=== PATIENT | female | born 1965 | race Caucasian/White ===

== ENCOUNTER → 2017-07-06 | Outpatient (CLI) | payer OTHER ==
--- NOTE | 2017-07-09 07:52 | MM ---
Reason for exam: additional evaluation requested from abnormal screening. Last mammogram was performed less than 1 month ago. History: Patient had first child at age 35. Family history of breast cancer in paternal aunt. Taking estrogen beginning at age 52. Taking progesterone beginning at age 52. Took other hormone beginning at age 29. Physical Findings: Nurse did not find any significant physical abnormalities on exam. MG 3D Work Up W/Cad RT ML and spot compression CC view(s) were taken of the right breast. Prior study comparison: June 25, 2017, bilateral MG 3d screening mammo w/cad. September 20, 2015, bilateral MG screening mammo w CAD. The breast tissue is extremely dense which could obscure a lesion on mammography. There is no discrete abnormality. No significant new findings when compared with previous films. These results were verbally communicated with the patient and result sheet given to the patient on 07/06/17. ASSESSMENT: Benign, BI-RAD 2 RECOMMENDATION: Return to routine screening mammogram schedule for both breasts.
== END | disposition home or self-care (01) ==
LOC: RADMAMWWP 15:00
PROVIDERS: ATTEND Obstetrics & Gynecology
DX: R92.8 Other abnormal and inconclusive findings on diagnostic imaging of breast (principal)
CPT/HCPCS: G0206; G0279

== ENCOUNTER → 2018-09-05 | Outpatient (CLI) | payer BC ==
--- NOTE | 2018-09-08 14:03 | MM ---
Reason for exam: screening (asymptomatic). Last mammogram was performed 1 year and 2 months ago. History: Patient had first child at age 35. Family history of breast cancer in paternal aunt. Taking estrogen beginning at age 52. Taking progesterone beginning at age 52. Took other hormone beginning at age 29. MG 3D Screening Mammo W/Cad Bilateral CC and MLO view(s) were taken. Prior study comparison: July 06, 2017, right breast MG 3d work up w/cad RT. June 25, 2017, bilateral MG 3d screening mammo w/cad. The breast tissue is extremely dense which could obscure a lesion on mammography. No suspicious abnormality. No significant changes when compared with prior studies. ASSESSMENT: Negative, BI-RAD 1 RECOMMENDATION: Routine screening mammogram of both breasts in 1 year.
== END | disposition home or self-care (01) ==
LOC: RADMAMWWP 07:04
PROVIDERS: ATTEND Obstetrics & Gynecology
DX: Z12.31 Encounter for screening mammogram for malignant neoplasm of breast (principal)
CPT/HCPCS: 77063; 77067

== ENCOUNTER → 2019-09-08 | Outpatient (CLI) | payer BC ==
--- NOTE | 2019-09-09 11:38 | MM ---
Reason for exam: screening (asymptomatic). Last mammogram was performed 1 year ago. History: Patient had first child at age 35. Family history of breast cancer in paternal aunt. Took hormonal contraceptives for 3 years 3 months. Taking estrogen beginning at age 52. Taking progesterone beginning at age 52. Took other hormone beginning at age 29. Physical Findings: A clinical breast exam by your physician is recommended on an annual basis and results should be correlated with mammographic findings. MG 3D Screening Mammo W/Cad Bilateral CC and MLO view(s) were taken. Prior study comparison: September 05, 2018, bilateral MG 3d screening mammo w/cad. July 06, 2017, right breast MG 3d work up w/cad RT. The breast tissue is heterogeneously dense. This may lower the sensitivity of mammography. There is no discrete abnormality. No significant changes when compared with prior studies. ASSESSMENT: Negative, BI-RAD 1 RECOMMENDATION: Routine screening mammogram of both breasts in 1 year.
== END | disposition home or self-care (01) ==
LOC: RADMAMWWP 07:37
PROVIDERS: ATTEND Clinical Nurse Specialist Women's Health
DX: Z12.31 Encounter for screening mammogram for malignant neoplasm of breast (principal)
CPT/HCPCS: 77063; 77067

== ENCOUNTER → 2020-06-14 | Outpatient (CLI) | payer BC ==
--- NOTE | 2020-06-14 13:19 | CT ---
EXAMINATION TYPE: CT sinus wo con DATE OF EXAM: 06/14/2020 COMPARISON: None HISTORY: Chronic Maxillary Sinusitis CT DLP: 583.7 mGycm. Automated Exposure Control for Dose Reduction was Utilized. TECHNIQUE: CT scan of the sinuses is performed without contrast, axial images are obtained, coronal r eformatted images are also reviewed. FINDINGS: The paranasal sinuses including the frontal, sphenoid, and maxillary sinuses bilaterally ar e well-aerated without abnormal opacification. There is mucosal thickening of the ethmoid air cells. 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 The right sphenoid ostium is patent. The ostiomeatal complex is patent bilaterally on the coronal images. The frontoethmoidal recesses narrowed on the rig ht. There is bilateral lateral attachment of the basal lamellae to the lamina papyracea, a normal margarita iant. Agger nasi cells bilaterally. There is rightward deviation of the nasal septum. The nasal cavit y is patent. Visualized portion of mastoid air cells show no abnormal opacification. The globes are grossly symme tric bilaterally. IMPRESSION: 1. Mucosal thickening of the ethmoid air cells. 2. Occlusion of the left sphenoid ostia. 3. Narrowing of the right frontoethmoidal recess. 4. Rightward deviation of the nasal septum.
== END | disposition home or self-care (01) ==
LOC: RADCTMAIN 07:16
PROVIDERS: ATTEND Family Medicine
DX: J34.89 Other specified disorders of nose and nasal sinuses (principal); J34.2 Deviated nasal septum
CPT/HCPCS: 70486

== ENCOUNTER 2021-01-26 12:40 | Observation (INO) | payer BC ==
--- NOTE | 2021-01-26 13:35 | ED ---
General Adult HPI - General Chief complaint: Neuro Symptoms/Deficit Stated complaint: Difficulty Speaking/Vision Changes Time Seen by Provider: 01/26/21 13:22 Source: patient, RN notes reviewed Mode of arrival: ambulatory Limitations: no limitations - History of Present Illness Initial comments: Patient is a pleasant 55-year-old female presenting to the emergency department with concerns regarding excessive aphasia and visual changes. Onset of symptoms was 10 AM. Patient had an episode of blurry vision on the right eye on the lateral side, less than 50%. The symptoms lasted around 10 minutes and resolved. Following this patient had 3 episodes each lasting 2-3 minutes of expressive aphasia. Patient denies confusion over states he was unable to speak the words she was thinking of. Patient did have difficulty finding words. No history of similar symptoms previously. Patient does have a moderate sinus headache however states this is a chronic problem for her and not unusual at all. No extremity weakness. No paresthesias. Patient is currently symptom- free. - Related Data Home Medications Medication Instructions Recorded Confirmed [place] Fe 1 tab PO DAILY 01/26/21 01/26/21 Fluticasone Nasal [place] [Flonase 1 spr EA NOSTRIL DAILY PRN 01/26/21 01/26/21 Nasal [place]] Loratadine [Claritin] 10 mg PO DAILY 01/26/21 01/26/21 Pseudoephedrine [Sudafed] 30 mg PO Q4H PRN 01/26/21 01/26/21 Allergies Allergy/AdvReac Type Severity Reaction Status Date / Time Tetracyclines Allergy Nausea & Verified 01/26/21 14:44 Vomiting Review of Systems ROS Statement: Those systems with pertinent positive or pertinent negative responses have been documented in the HPI. ROS Other: All systems not noted in ROS Statement are negative. Constitutional: Denies: fever Eyes: Reports: as per HPI, vision change. Denies: eye pain ENT: Denies: ear pain Respiratory: Denies: cough Cardiovascular: Denies: chest pain Endocrine: Denies: fatigue Gastrointestinal: Denies: abdominal pain Genitourinary: Denies: dysuria Musculoskeletal: Denies: back pain Skin: Denies: rash Neurological: Reports: as per HPI, headache. Denies: weakness Past Medical History Additional Past Medical History / Comment(s): raynauds History of Any Multi-Drug Resistant Organisms: None Reported Past Surgical History: No Surgical Hx Reported Past Psychological History: No Psychological Hx Reported Smoking Status: Never smoker Past Alcohol Use History: None Reported Past Drug Use History: None Reported General Exam Limitations: no limitations General appearance: alert, in no apparent distress Head exam: Present: normocephalic Eye exam: Present: normal appearance, PERRL, EOMI. Absent: nystagmus Expanded Eyelids: Normal Inspection: Bilateral Pupils: Regular, Round: Bilateral Sclera/Conjunctival: Normal Inspection: Bilateral Posterior chamber: Normal Inspection: Bilateral ENT exam: Present: normal oropharynx Neck exam: Present: normal inspection Respiratory exam: Present: normal lung sounds bilaterally Cardiovascular Exam: Present: regular rate, normal rhythm, normal heart sounds GI/Abdominal exam: Present: soft. Absent: tenderness Extremities exam: Present: normal inspection Neurological exam: Present: alert, oriented X3, CN II-XII intact. Absent: motor sensory deficit Expanded Neurological exam: Present: protecting the airway Patient oriented to: Present: person, place, time Speech: Present: fluid speech Cranial nerves: EOM's Intact: Normal, Facial Sensation: Normal Sensory exam: Upper Extremity Light Touch: Normal, Lower Extremity Light Touch: Normal Motor strength exam: RUE: 5, LUE: 5, RLE: 5, LLE: 5 Eye Response: (4) open spontaneously Motor Response: (6) obeys commands Verbal Response: (5) oriented Psychiatric exam: Present: normal affect, normal mood Skin exam: Present: normal color Course Vital Signs 01/26/21 01/26/21 01/26/21 13:04 13:30 14:37 Temperature 98 F Pulse Rate 73 67 76 Respiratory 18 18 18 Rate Blood Pressure 170/80 122/87 156/93 O2 Sat by Pulse 99 97 99 Oximetry EKG Findings - EKG Comments: EKG Findings:: Normal sinus rhythm with a rate of 78. IL 126. QRS 84. QT 34. QTC 437. Normal axis. Poor R-wave progression. No acute ST change. Medical Decision Making - Medical Decision Making Patient reevaluated and remained symptom-free. Patient and family updated on results and plan. Case was discussed in detail with Dr. Camara, covering for Dr. Landrum, who will admit. - Lab Data Result diagrams: 01/26/21 13:43 01/26/21 13:43 Lab Results 01/26/21 01/26/2121 Range/Units 13:43 13:43 13:43 WBC 6.5 (3.8-10.6) k/uL RBC 4.99 (3.80-5.40) m/uL Hgb 14.1 (11.4-16.0) gm/dL Hct 43.3 (34.0-46.0) % MCV 86.8 (80.0-100.0) fL MCH 28.3 (25.0-35.0) pg MCHC 32.6 (31.0-37.0) g/dL RDW 13.8 (11.5-15.5) % Plt Count 305 (150-450) k/uL MPV 8.8 Neutrophils % 65 % Lymphocytes % 26 % Monocytes % 6 % Eosinophils % 1 % Basophils % 1 % Neutrophils # 4.2 (1.3-7.7) k/uL Lymphocytes # 1.7 (1.0-4.8) k/uL Monocytes # 0.4 (0-1.0) k/uL Eosinophils # 0.1 (0-0.7) k/uL Basophils # 0.1 (0-0.2) k/uL PT 9.5 (9.0-12.0) sec INR 0.9 (<1.2) APTT 22.7 (22.0-30.0) sec Sodium 136 L (137-145) mmol/L Potassium 4.6 (3.5-5.1) mmol/L Chloride 107 (98-107) mmol/L Carbon Dioxide 23 (22-30) mmol/L Anion Gap 6 mmol/L BUN 14 (7-17) mg/dL Creatinine 0.81 (0.52-1.04) mg/dL Est GFR (CKD-EPI)AfAm >90 (>60 ml/min/1.73 sqM) Est GFR (CKD-EPI)NonAf 83 (>60 ml/min/1.73 sqM) Glucose 85 (74-99) mg/dL Calcium 9.2 (8.4-10.2) mg/dL Total Bilirubin 0.3 (0.2-1.3) mg/dL AST 24 (14-36) U/L ALT 13 (4-34) U/L Alkaline Phosphatase 55 (38-126) U/L Troponin I (0.000-0.034) ng/mL Total Protein 6.9 (6.3-8.2) g/dL Albumin 4.4 (3.5-5.0) g/dL 01/26/21 Range/Units 13:43 WBC (3.8-10.6) k/uL RBC (3.80-5.40) m/uL Hgb (11.4-16.0) gm/dL Hct (34.0-46.0) % MCV (80.0-100.0) fL MCH (25.0-35.0) pg MCHC (31.0-37.0) g/dL RDW (11.5-15.5) % Plt Count (150-450) k/uL MPV Neutrophils % % Lymphocytes % % Monocytes % % Eosinophils % % Basophils % % Neutrophils # (1.3-7.7) k/uL Lymphocytes # (1.0-4.8) k/uL Monocytes # (0-1.0) k/uL Eosinophils # (0-0.7) k/uL Basophils # (0-0.2) k/uL PT (9.0-12.0) sec INR (<1.2) APTT (22.0-30.0) sec Sodium (137-145) mmol/L Potassium (3.5-5.1) mmol/L Chloride (98-107) mmol/L Carbon Dioxide (22-30) mmol/L Anion Gap mmol/L BUN (7-17) mg/dL Creatinine (0.52-1.04) mg/dL Est GFR (CKD-EPI)AfAm (>60 ml/min/1.73 sqM) Est GFR (CKD-EPI)NonAf (>60 ml/min/1.73 sqM) Glucose (74-99) mg/dL Calcium (8.4-10.2) mg/dL Total Bilirubin (0.2-1.3) mg/dL AST (14-36) U/L ALT (4-34) U/L Alkaline Phosphatase (38-126) U/L Troponin I <0.012 (0.000-0.034) ng/mL Total Protein (6.3-8.2) g/dL Albumin (3.5-5.0) g/dL - Radiology Data Radiology results: report reviewed (Computed tomography scan of the brain reveals no acute process. CT angiogram of the brain reveals no acute process.), image reviewed (Chest x-ray shows no acute process) Disposition Clinical Impression: Transient cerebral ischemia Disposition: ADMITTED IP TO THIS HOSP Is patient prescribed a controlled substance at d/c from ED?: No Referrals: Adrian Landrum MD [Primary Care Provider] - 1-2 days Decision Time: 15:22
--- NOTE | 2021-01-26 14:13 | XR ---
EXAMINATION TYPE: XR chest 2V DATE OF EXAM: 01/26/2021 COMPARISON: NONE TECHNIQUE: PA and lateral views submitted. HISTORY: Altered mental status FINDINGS: The lungs are clear and there is no pneumothorax, pleural effusion, or focal pneumonia. Heart size normal. No overt failure. Hyperinflation suggests COPD or asthma. Correlate clinically. IMPRESSION: 1. No acute process.
[2021-01-26 14:14] LABS: Basophils # (A) 0.1 k/uL (0-0.2); Basophils % (A) 1 %; Eosinophils # (A) 0.1 k/uL (0-0.7); Eosinophils % (A) 1 %; HCT 43.3 % (34.0-46.0); HGB 14.1 gm/dL (11.4-16.0); Lymphocytes # (A) 1.7 k/uL (1.0-4.8); Lymphocytes % (A) 26 %; MCH 28.3 pg (25.0-35.0); MCHC 32.6 g/dL (31.0-37.0); MCV 86.8 fL (80.0-100.0); Mean Platelet Volume 8.8; Monocytes # (A) 0.4 k/uL (0-1.0); Monocytes % (A) 6 %; Neutrophils # (A) 4.2 k/uL (1.3-7.7); Neutrophils % (A) 65 %; Platelet Count 305 k/uL (150-450); RBC 4.99 m/uL (3.80-5.40); RDW 13.8 % (11.5-15.5); WBC 6.5 k/uL (3.8-10.6)
[2021-01-26 14:17] LABS: ALT 13 U/L (4-34); AST 24 U/L (14-36); African American GFR (CKD) >90 (>60 ml/min/1.73 sqM); Albumin 4.4 g/dL (3.5-5.0); Alkaline Phosphatase 55 U/L (38-126); Anion Gap 6 mmol/L; Blood Urea Nitrogen 14 mg/dL (7-17); Calcium 9.2 mg/dL (8.4-10.2); Carbon Dioxide 23 mmol/L (22-30); Chloride 107 mmol/L (98-107); Glucose 85 mg/dL (74-99); Non-African American GFR(CKD) 83 (>60 ml/min/1.73 sqM); Potassium 4.6 mmol/L (3.5-5.1); Sodium 136 mmol/L (137-145); Total Bilirubin 0.3 mg/dL (0.2-1.3); Total Protein 6.9 g/dL (6.3-8.2)
[2021-01-26 14:23] LABS: INR 0.9 (<1.2); Partial Thromboplastin Time 22.7 sec (22.0-30.0); Prothrombin Time 9.5 sec (9.0-12.0)
--- NOTE | 2021-01-26 14:43 | CT ---
EXAMINATION TYPE: CT brain wo con for TPA DATE OF EXAM: 01/26/2021 HISTORY: Vision changes and difficulty speaking. Acute onset neuro deficit. CT DLP: 1062.8 mGycm. Automated Exposure Control for Dose Reduction was Utilized. TECHNIQUE: CT scan of the head is performed without contrast. COMPARISON: None. FINDINGS: There is no acute intracranial hemorrhage or midline shift identified. Ventricles and sul ci are within normal limits in size for patient's age. Melara-white matter differentiation maintained. The globes are intact and the visualized sinuses are clear. IMPRESSION: No acute intracranial hemorrhage or midline shift. Unremarkable study.
--- NOTE | 2021-01-26 15:10 | CT ---
EXAMINATION TYPE: CT angio head neck DATE OF EXAM: 01/26/2021 HISTORY: Vision changes and difficulty speaking. COMPARISON: CT brain same date CT DLP: 440.2 mGycm. Automated Exposure Control for Dose Reduction was Utilized. TECHNIQUE: CTA scan of the neck is performed with IV Contrast, patient injected with 65ml mL of Isov ue 370, axial images are obtained, coronal and sagittal reformatted images are reviewed. Three-D jenn nstructed images are created on an independent workstation and reviewed. FINDINGS: Carotid/Vascular Structures: 4 super aortic branch vessels are present, the innominate, left and righ t subclavian, left and right common carotid, left and right vertebral arteries are patent, right vert ebral artery is dominant. Internal and external carotid arteries are patent, there is no evident sten osis of the proximal internal carotid arteries by NASCET criteria. Anterior posterior circulation patent within the brain. No evident stenosis, embolus, aneurysm, or di ssection Other: IMPRESSION: No significant abnormality is seen. Consider brain MRI.
[2021-01-26] MEDS ORDERED: ASPIRIN 325 MG TAB PO STA (15:23)
[2021-01-26] MEDS: SODIUM CHLORIDE 0.9% 1,000 ML IV SCH (15:38)
[2021-01-26] MEDS ORDERED: ACETAMINOPHEN TAB 325 MG TAB PO PRN (17:04)
[2021-01-26] MEDS ORDERED: MELATONIN 3 MG TABLET PO PRN (17:04)
--- NOTE | 2021-01-26 17:04 | P.HPIM ---
History of Present Illness H&P Date: 01/26/21 Chief Complaint: right eye vision loss Patient is a 55-year-old female with Raynaud's disease who presented to the ER secondary to right eye vision loss and expressive aphasia. At arrival to the ER she was slightly hypertensive with a blood pressure 170/80 which resolved spo ntaneously to 122/87. Laboratory analysis was unremarkable. She was given a dose of aspirin and arrangements were made for admission. Imaging: Chest x-ray no acute process CT head: No acute intracranial hemorrhage or midline shift CTA head and neck: no acute process Patient seen and examined in the emergency department. Right eye flashing lights at 10:30 while on zoom meeting, unable to read with eye, vision intact left eye. Then felt "off" She then was having difficulty finding words and with sentence structure and flow Her primary care office who could see her in the next 1-2 days Had a headache, attributed to sinus problems that was consistent with her prior sinus problems. She believes that this headache was present prior to the eye problems and it was slight at not very noticeable. Again her difficulty with word expression recurred and lasted approximately 30 minutes. Her significant other who is at bedside describes that she had no slurred or stuttering-type speech the pattern was normal however the words were nonsensical. She reports increased stress over the last several weeks. She does report increased pain in her right thumb over the last several weeks. She denies any recent cough, cold, fever, flu, nausea, vomiting, diarrhea, difficulty with urination. Assessment mother had a significant stroke when Katalina was in the eighth grade. Pertinent positives and negatives as discussed in HPI, a complete review of systems was performed and all other systems are negative. General: non toxic, no distress, appears at stated age Derm: warm, dry Head: atraumatic, normocephalic, symmetric Eyes: EOMI, no lid lag, anicteric sclera, pupils equal round reactive to light ENT: Nose and ears atraumatic, no thrush, no pharyngeal erythema Neck: No thyromegaly, no cervical lymphadenopathy, trachea midline, supple Mouth: no lip lesion, mucus membranes moist Cardiovascular: S1S2 reg, no murmur, positive posterior tibial pulse bilateral, no edema, capillary refill less than 2 seconds Lungs: clear to ascultation bilateral, no ronchi, no rales, no wheeze, no accessory muscle use Abdominal: soft, nontender to palpation, no guarding, no appreciable organomegaly, normal bowel sounds Ext: no gross muscle atrophy, muscle strength muscle strength 5 out of 5 in all 4 extremities, no contractures Neuro: CN II-XI grossly intact, light touch intact all 4 extremities, finger to nose within normal limits, babinsjki equivocal Psych: Alert, oriented, appropriate affect Assessment/plan: Expressive aphasia with visual disturbance -Concern for TIA versus vascular etiology -CTA head and neck negative -Aspirin, statin, telemetry, echo, lipid profile -Neurology consult, consider EEG - MRI -Check ESR, CRP Elevated BP without diagnosis of HTN - Monitor closely - would not treat unless SBP >220 or DBP>110 Raynauds disease The patient is placed in observation with an anticipated less than 2 midnight stay for evaluation of Expressive aphasia. Surrogate decision-maker: Spouse, Kevon CODE STATUS:full DVT prophylaxis: Heparin Discussed with: Patient, ED physician, significant other Anticipated discharge: In a.m. Anticipated discharge place: Home A total of 65 minutes was spent on the care of this complex patient more than 50% of the time was spent in counseling and care coordination. Past Medical History Additional Past Medical History / Comment(s): raynauds, chronic sinusitis History of Any Multi-Drug Resistant Organisms: None Reported Past Surgical History: No Surgical Hx Reported Past Psychological History: No Psychological Hx Reported Smoking Status: Never smoker Past Alcohol Use History: Rare Past Drug Use History: None Reported Additional History: [facility] - Past Family History Mother Family Medical History: Hyperlipidemia, Hypertension Additional Family Medical History / Comment(s): CVA under the age of 65, passed at 62 Father Additional Family Medical History / Comment(s): dementia, TIA Medications and Allergies Home Medications Medication Instructions Recorded Confirmed Type [place] Fe 1 tab PO DAILY 01/26/21 01/26/21 History Fluticasone Nasal [place] [Flonase 1 spr EA NOSTRIL DAILY PRN 01/26/21 01/26/21 History Nasal [place]] Loratadine [Claritin] 10 mg PO DAILY 01/26/21 01/26/21 History Pseudoephedrine [Sudafed] 30 mg PO Q4H PRN 01/26/21 01/26/21 History Allergies Allergy/AdvReac Type Severity Reaction Status Date / Time Tetracyclines Allergy Nausea & Verified 01/26/21 14:44 Vomiting Physical Exam Osteopathic Statement: *. No significant issues noted on an osteopathic structural exam other than those noted in the History and Physical/Consult. Vitals: Vital Signs Temp Pulse Resp BP Pulse Ox 01/26/21 15:37 63 18 134/69 98 01/26/21 14:37 76 18 156/93 99 01/26/21 13:30 67 18 122/87 97 01/26/21 13:04 98 F 73 18 170/80 99 Intake and Output 01/26/21 01/26/21 01/26/21 06:59 14:59 22:59 Other: Weight 68.946 kg Results CBC & Chem 7: 01/26/21 13:43 01/26/21 13:43 Labs: Abnormal Lab Results - Last 24 Hours (Table) 01/26/21 Range/Units 13:43 Sodium 136 L (137-145) mmol/L
[2021-01-27] MEDS: SODIUM CHLORIDE 0.9% 1,000 ML IV SCH ×2 (08:05→15:18)
--- NOTE | 2021-01-27 08:23 | MR ---
MR brain without contrast HISTORY: Expressive aphasia, vision loss right side Multiplanar multisequence imaging through the brain, correlation to CT brain 01/26/2021 There is no restricted diffusion. There is no hemorrhage or hydrocephalus. The corpus callosum, pitui tary, cervical medullary junction, cerebellopontine angles are normal. There are normal vascular flow voids. There are some scattered hyperintensities within the subcortical white matter on inversion re covery T2-weighted sequences, approximately 10-15. Foci are present. Inflammatory changes are present in the ethmoid air cells. The orbits show symmetric appearance. IMPRESSION: Nonspecific white matter demyelination, consider hypertension, migraine headaches, vascul itis, Lyme disease, multiple sclerosis is not excluded
[2021-01-27] MEDS ORDERED: ENOXAPARIN 40 MG/0.4 ML SYRINGE SQ SCH (09:00)
[2021-01-27] MEDS ORDERED: ASPIRIN 325 MG TAB PO SCH (09:00)
[2021-01-27 10:46] LABS: LDL Cholesterol,Calculated 86.6 mg/dL (0.0-131.0); VLDL Calculation 11.4 mg/dL (5.00-40.00)
--- NOTE | 2021-01-27 12:52 | ECHOF ---
Referral Reason:Thrombus MEASUREMENTS -------- HEIGHT: 165.1 cm WEIGHT: 68.9 kg BP: RVIDd: 2.6 cm (< 3.3) IVSd: 0.6 cm (0.6 - 1.1) LVIDd: 4.6 cm (3.9 - 5.3) LVPWd: 1.1 cm (0.6 - 1.1) IVSs: 1.1 cm LVIDs: 3.2 cm LVPWs: 1.3 cm Ao Diam: 2.8 cm (2.0 - 3.7) AV Cusp: 1.8 cm (1.5 - 2.6) LA Diam: 2.7 cm (2.7 - 3.8) MV EXCURSION: 19.436 mm (> 18.000) MV EF SLOPE: 97 mm/s (70 - 150) EPSS: 0.2 cm MV E Charles: 1.08 m/s MV DecT: 214 ms MV A Charles: 0.75 m/s MV E/A Ratio: 1.44 RAP: 5.00 mmHg RVSP: 25.88 mmHg FINDINGS -------- Sinus rhythm. This was a technically good study. LV size, wall thickness and systolic function are normal, with an EF greater than 55%. The left kiley tricular size is normal. The right ventricle is normal in size. The left atrial size is normal. The right atrial size is normal. Agitated Saline study is negative, no crossing at atrial level or right to left shunt noted. The aortic valve is trileaflet, and appears structurally normal. No aortic stenosis or regurgitation. Mild mitral regurgitation is present. Mild tricuspid regurgitation present. Right ventricular systolic pressure is normal at < 35 mmHg. There is no pulmonic regurgitation present. There is no pericardial effusion. CONCLUSIONS -------- 1. LV size, wall thickness and systolic function are normal, with an EF greater than 55%. 2. The left ventricular size is normal. 3. The right ventricle is normal in size. 4. The left atrial size is normal. 5. The right atrial size is normal. 6. Agitated Saline study is negative, no crossing at atrial level or right to left shunt noted. 7. The aortic valve is trileaflet, and appears structurally normal. No aortic stenosis or regurgitati on. 8. Mild mitral regurgitation is present. 9. Mild tricuspid regurgitation present. 10. There is no pericardial effusion. [employer] SUPERVISOR: Jeri Schmitz RDCS
--- NOTE | 2021-01-27 14:47 | P.CNNES ---
History of Present Illness Consult date: 01/27/21 Requesting physician: Den Lomax Reason for Consult: TIA History of Present Illness: Patient is a 55-year-old female recently seen in the hospital came to the hospital yesterday with concerns of expressive aphasia and visual changes. Symptoms started at 10 AM. 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 She was still able to see, did not got completely dark. The symptoms lasted for about 15 minutes. About half an hour later when she was talking, she noticed difficulty talking. Speech was not slurred. But she was put in wrong words, and making grammatical errors. She knew she that she was having problem with the speech. There was no problem with her typing skills at that time. These speech and language episodes happened off and on about 4 times over 2 hours. Patient states that after her initial visual disturbance, she had one more time in which she saw a bright crescent in her peripheral vision on the right side, but lasted for about 45 seconds. All of the symptoms resolved in 2 hours. Patient got concerned and decided to come to the ER. By the time she came to ER, all symptoms have resolved. Vital signs on arrival blood pressure 170/80, pulse rate 73, temperature 98.0. Computed tomography scan of the head was normal. CT angios of head and neck showed no significant abnormality. EKG shows normal sinus rhythm with sinus arrhythmia. Possible anterior infarct, age undetermined. Chest x-ray showed no acute process. Brain MRI was done this morning, which revealed nonspecific white matter demyelination, consider hypertension, migraine headaches, vasculitis, Lyme disease, multiple sclerosis is not excluded. On my review, there are very few subcortical white matter lesions, which appears more from small vessel disease rather than demyelination. Patient had normal CBC, PT/PTT, CMP, lipid panel with cholesterol 147, LDL 86, HDL 49 and triglycerides 57. Troponin is negative. Arroyo virus PCR negative. Patient states that she has long-standing history of "sinus headaches". She would have about 20 days out of the month that she has a headache. When she gets a pressure headache, it involves bifrontal region and also involve the cheek region. She gets postnasal drip. She takes Motrin, Sudafed, Tylenol. The headaches can last between 6 hours to a couple days. She does get slight light and noise sensitivity, occasionally be get nausea but no vomiting. When she gets a headache, she cannot function well. All these features are suggestive of probable migraine headaches never diagnosed. Patient usually does not get any aura. Patient does not take any antiplatelet medication. Patient does drink 2 large cups of coffee every day. She often drinks a few Dr Pepper as well. Does not smoke. Patient has been on hormonal replacement therapy with estrogen as well for the last 2 years. Patient denies any history of hypertension, usually runs systolic blood pressure between 115-125/70. Telemetry monitoring so far showing normal sinus rhythm. Review of Systems As mentioned above in detail. All other 14 point of review systems unremarkable. Past Medical History Past Medical History: GERD/Reflux Additional Past Medical History / Comment(s): Occasional palpitations, past partial bowel obstruction treated conservatively, raynauds, chronic sinusitis History of Any Multi-Drug Resistant Organisms: None Reported Past Surgical History: No Surgical Hx Reported Additional Past Surgical History / Comment(s): EGD, colonoscopy, R salpingectomy. Past Anesthesia/Blood Transfusion Reactions: No Reported Reaction Smoking Status: Never smoker - Past Family History Mother Family Medical History: Cancer, CVA/TIA, Hyperlipidemia, Hypertension Additional Family Medical History / Comment(s): Lung cancer/smoker, cva, heart problems. Mother is . Father Family Medical History: Hypertension Additional Family Medical History / Comment(s): Dementia, TIA. Father is living. Medications and Allergies Home Medications Medication Instructions Recorded Confirmed Type Fluticasone Nasal [place] [Flonase 1 spr EA NOSTRIL DAILY PRN 01/26/21 01/26/21 History Nasal [place]] Loratadine [Claritin] 10 mg PO DAILY 01/26/21 01/26/21 History Aspirin [[place] Aspirin EC] 81 mg PO DAILY #30 tablet. 01/27/21 Rx Allergies Allergy/AdvReac Type Severity Reaction Status Date / Time Tetracyclines Allergy Nausea & Verified 01/26/21 14:44 Vomiting Physical Examination - Vital Signs Vital Signs: Vital Signs Temp Pulse Resp BP Pulse Ox 01/27/21 11:14 70 16 143/75 99 01/27/21 08:11 86 16 136/79 99 01/27/21 03:38 60 16 115/79 99 01/27/21 01:37 62 16 160/72 99 06/02/21 21:54 69 18 109/78 98 01/26/21 19:58 70 18 142/81 98 01/26/21 16:36 66 18 141/77 98 01/26/21 15:37 63 18 134/69 98 01/26/21 14:37 76 18 156/93 99 01/26/21 13:30 67 18 122/87 97 01/26/21 13:04 98 F 73 18 170/80 99 Intake and Output 01/26/21 01/27/21 01/27/21 22:59 06:59 14:59 Other: Weight 68.946 kg Patient is a middle aged female, in no acute distress. Patient is alert awake oriented to time place and person. Speech and language functions are normal. Attention, concentration and fund of knowledge is adequate. No aphasia or dysarthria. No paraphasic errors noted. On cranial examination, pupils are equal, round and reacting to light, visual ramos are full on confrontation with no neglect, extraocular muscles are intact with no nystagmus. Face is symmetric, tongue protrudes to the midline. Palatal elevation and sensation normal, hearing and shoulder shrug normal, facial sensation normal. On muscle strength testing, there is no pronator drift and the strength is normal in arms and legs distally and proximally. Deep tendon reflexes are 2+ and symmetrical all over and plantars downgoing. Sensory to touch is equal with no neglect on double simultaneous stimulation. Cerebellar function showed no ataxia for [id number] testing. No dysdiadochokinesia. Tone and bulk of muscles normal. Gait normal. On general examination, there is no carotid bruit or murmur, S1-S2 audible. Abdomen is soft nontender. Chest is clear. Peripheral pulses are present. No edema. Results - Laboratory Findings CBC and BMP: 01/26/21 13:43 01/26/21 13:43 Abnormal Lab Findings: Abnormal Labs 01/26/21 01/26/21 13:43 13:43 Sodium 136 L C-Reactive Protein 1.8 H Assessment and Plan Assessment: * Probable TIA versus complex migraine. Patient does have some hypercoagulable state, as she does take hormone replacement therapy. Patient's blood pressure usually is normal but was noted to be elevated on arrival to the ER. * Chronic daily headaches, probably caffeine-induced headaches versus primary migraine headaches. * Excessive caffeine intake. Plan: * Patient underwent MRI of the brain which is normal. There is some white matter lesions noticed, which is from small vessel disease. * 2-D echo was performed, which revealed ejection fraction 55-60%. Normal left ventricular size, wall thickness. Agitated saline was negative for any shunt. * CTA of head and neck normal. * Lipid panel with cholesterol 147, LDL 86, HDL 49 and triglycerides 57. * Agree with continuing aspirin 81 mg daily indefinitely. * Patient was recommended to stop HRT, and discuss with her primary physician who initiated the HRT. * Patient's chronic headaches are probably migraines, which are probably secondary to excessive caffeine intake. Patient was recommended to decrease the amount of caffeine intake. If the headaches persist, then she was recommended to follow up with a neurologist locally. * Neurologically clear.
[2021-01-27 14:54] VITALS: BP 160/83; PULSE 60; RESP 17; TEMP 98.2
--- NOTE | 2021-01-27 15:56 | P.DS ---
Providers Date of admission: 01/26/21 15:23 Expected date of discharge: 01/27/21 Attending physician: Анна Camara DO Consults: 01/26/21 15:23 Consult Physician Urgent Consulting Provider: Ayana Alvarado Consult Reason/Comments: tia Do you want consulting provider notified?: Yes Primary care physician: Adrian Landrum Hospital Course: Discharge Diagnosis: Suspect complex migraine, less likely TIA. Sinusitis with chronic daily headaches Excess caffeine intake Elevated blood pressure without diagnosis of hypertension Hospital Course: Patient is a 55-year-old female with Raynaud's disease who presented to the ER secondary to right eye vision loss and expressive aphasia. At arrival to the ER she was slightly hypertensive with a blood pressure 170/80 which resolved spontaneously to 122/87. Laboratory analysis was unremarkable. She was given a dose of aspirin and arrangements were made for admission. She was monitored overnight and had no recurrence of symptoms. She was seen by neurology who felt this was complex migraine versus TIA secondary to her hormone replacement therapy. Cholesterol levels were normal. She was determined stable for discharge. There is no evidence of atrial fibrillation on telemetry monitoring. She was told to take aspirin 81 mg daily, cut down on caffeine intake, and calm off of hormone replacement therapy. She'll follow up with Dr. Landrum in 2-3 days, she will follow up with neurology as needed if she continues to have daily headaches. Imaging: Chest x-ray no acute process CT head: No acute intracranial hemorrhage or midline shift CTA head and neck: no acute process MRI brain: Nonspecific white matter demyelination Echocardiogram: Ejection fraction 55-60%, negative bubble study Patient seen and examined at bedside. No additional episodes of difficulty with speech or vision. No chest pain or shortness of breath. Vital signs reviewed and stable. General: non toxic, no distress, appears at stated age Derm: warm, dry Head: atraumatic, normocephalic, symmetric Eyes: EOMI, no lid lag, anicteric sclera Mouth: no lip lesion, mucus membranes moist Cardiovascular: S1S2 reg, no murmur, positive posterior tibial pulse bilateral, Lungs: CTA bilateral, no rhonchi, no rales , no accessory muscle use Abdominal: soft, nontender to palpation, no guarding, no appreciable organomegaly Ext: no gross muscle atrophy, no edema, no contractures Neuro: CN II-XI grossly intact, no focal neuro deficits Psych: Alert, oriented, appropriate affect A total of 25 minutes of time were spent preparing this complex discharge summary . Plan - Discharge Summary Discharge Rx Participant: No New Discharge Prescriptions: New Aspirin [[place] Aspirin EC] 81 mg PO DAILY #30 tablet. Continue Loratadine [Claritin] 10 mg PO DAILY Fluticasone Nasal [place] [Flonase Nasal [place]] 1 spr EA NOSTRIL DAILY PRN PRN Reason: Allergy Symptoms Discontinued Pseudoephedrine [Sudafed] 30 mg PO Q4H PRN PRN Reason: Allergy Symptoms [place] Fe 1 tab PO DAILY Discharge Medication List Fluticasone Nasal [place] [Flonase Nasal [place]] 1 spr EA NOSTRIL DAILY PRN 01/26/21 [History] Loratadine [Claritin] 10 mg PO DAILY 01/26/21 [History] Aspirin [[facility] Aspirin EC] 81 mg PO DAILY #30 tablet. 01/27/21 [Rx] Follow up Appointment(s)/Referral(s): Martin Merritt MD [REFERRING] - As Needed Adrian Landrum MD [Primary Care Provider] - 1-2 days Jeremy Murphy DO [STAFF PHYSICIAN] - As Needed Activity/Diet/Wound Care/Special Instructions: Activity: as tolerated Diet: regular, decrease caffeine intake Discharge Disposition: HOME SELF-CARE
== END 2021-01-27 17:07 | disposition home or self-care (01) ==
LOC: EC 12:40 → 1SOBS 15:23 → 6NMEDSUR 20:50
PROVIDERS: ADMIT Internal Medicine; ATTEND Internal Medicine
DX: R51.9 Headache, unspecified (principal); J32.9 Chronic sinusitis, unspecified; R03.0 Elevated blood-pressure reading, without diagnosis of hypertension; Z72.89 Other problems related to lifestyle; H53.8 Other visual disturbances; R47.01 Aphasia; Z20.822 Contact with and (suspected) exposure to COVID-19; I73.00 Raynaud's syndrome without gangrene; D68.59 Other primary thrombophilia; K21.9 Gastro-esophageal reflux disease without esophagitis; H54.61 Unqualified visual loss, right eye, normal vision left eye; Z79.890 Hormone replacement therapy; Z79.82 Long term (current) use of aspirin; Z88.1 Allergy status to other antibiotic agents; Z82.3 Family history of stroke; Z82.49 Family history of ischemic heart disease and other diseases of the circulatory system; Z80.1 Family history of malignant neoplasm of trachea, bronchus and lung
CPT/HCPCS: 96372; 99285; 36415; 93005; 93306; 80061; 80053; 85652; 84484; 85025; 85610; 85730; 86140; 87635; 71046; 70496; 70450; 70498; 70551; G0378 ×2; J1650; Q9967

== ENCOUNTER 2021-07-12 12:58 | Outpatient (CLI) | payer BC ==
[~2021-07-12 12:58] MED LIST: BAMLANIVIMAB (EUA) 700 MG, ETESEVIMAB (EUA) 1,400 MG in SODIUM CHLORIDE 0.9% 50 ML IVPB ONE; SODIUM CHLORIDE 0.9% 50 ML IVPB ONE; SODIUM CHLORIDE 0.9% 500 ML 500 ML in EMPTY BAG 1 BAG IV PRN
[2021-07-12 13:59] VITALS: BP 147/63; PULSE 66; RESP 18; TEMP 97.6
== END 2021-07-12 14:45 | disposition home or self-care (01) ==
LOC: PROCWHC3 12:58
PROVIDERS: ATTEND Family Medicine
DX: U07.1 COVID-19 (principal)
CPT/HCPCS: 96360; J3490; M0243

== ENCOUNTER → 2021-10-04 | Outpatient (CLI) | payer BC ==
--- NOTE | 2021-10-04 11:45 | MM ---
Reason for exam: screening (asymptomatic). Last mammogram was performed 2 years and 1 month ago. History: Patient had first child at age 35. Family history of breast cancer in paternal aunt. Took hormonal contraceptives for 3 years 3 months. Taking estrogen beginning at age 52. Taking progesterone beginning at age 52. Took other hormone beginning at age 29. Physical Findings: A clinical breast exam by your physician is recommended on an annual basis and results should be correlated with mammographic findings. MG 3D Screening Mammo W/Cad Bilateral CC and MLO view(s) were taken. Prior study comparison: September 08, 2019, bilateral MG 3d screening mammo w/cad. September 05, 2018, bilateral MG 3d screening mammo w/cad. The breast tissue is heterogeneously dense. This may lower the sensitivity of mammography. No significant changes when compared with prior studies. ASSESSMENT: Benign, BI-RAD 2 RECOMMENDATION: Routine screening mammogram of both breasts in 1 year.
== END | disposition home or self-care (01) ==
LOC: RADMAMWWP 07:11
PROVIDERS: ATTEND Obstetrics & Gynecology
DX: Z12.31 Encounter for screening mammogram for malignant neoplasm of breast (principal); Z80.3 Family history of malignant neoplasm of breast
CPT/HCPCS: 77063; 77067

== ENCOUNTER → 2023-02-08 | Outpatient (CLI) | payer BC ==
--- NOTE | 2023-02-09 17:37 | MM ---
Reason for Exam: Screening (asymptomatic). Last mammogram was performed 1 year(s) and 4 month(s) ago. Patient History: Menarche at age 11. First Full-Term at age 35. Late child-bearing (after 31). Postmenopausal. Patient has history of breast feeding. Currently using Estrogen, starting at age 52. Currently using Progesterone, starting at age 52. Hormonal Contraceptives for 3 years, 3 months. Paternal aunt had breast cancer. Risk Values: Meghan 5 year model risk: 1.9%. NCI Lifetime model risk: 11.9%. Prior Study Comparison: 09/20/2015 Bilateral Screening Mammogram, [facility]. 06/25/2017 Bilateral Screening Mammogram, [facility]. 07/06/2017 Right Diagnostic Mammogram, [facility]. 09/05/2018 Bilateral Screening Mammogram, [facility]. 09/08/2019 Bilateral Screening Mammogram, [facility]. 10/04/2021 Bilateral Screening Mammogram, [facility]. Tissue Density: The breast tissue is heterogeneously dense. This may lower the sensitivity of mammography. Findings: Analyzed By CAD. Pattern appears symmetrical and stable. No significant change is evident. No suspicious groups of microcalcifications, spiculated or lobular masses, architectural distortion or other secondary signs of malignancy are mammographically apparent. Overall Assessment: Negative, BI-RAD 1 Management: Screening Mammogram of both breasts in 1 year. A negative mammogram report should not preclude additional follow up of suspicious palpable abnormalities. Patient should continue monthly self breast exam. A clinical breast exam by your physician is recommended on an annual basis and results should be correlated with mammographic findings. Electronically signed and approved by: Boyd Cuenca D.O. Radiologis
== END | disposition home or self-care (01) ==
LOC: RADMAMWWP 07:13
PROVIDERS: ATTEND Obstetrics & Gynecology
DX: Z12.31 Encounter for screening mammogram for malignant neoplasm of breast (principal); Z78.0 Asymptomatic menopausal state; Z80.3 Family history of malignant neoplasm of breast
CPT/HCPCS: 77063; 77067

== ENCOUNTER 2023-09-24 08:05 | Emergency (ER) | payer BC ==
[2023-09-24 08:13] VITALS: TEMP 98.2
[2023-09-24] MEDS: SODIUM CHLORIDE 0.9% 1,000 ML IV STA (08:36)
[2023-09-24] MEDS: ASPIRIN 81 MG PO STA (08:37)
--- NOTE | 2023-09-24 08:48 | ED ---
Chest Pain HPI - General Chief Complaint: Chest Pain Stated Complaint: chest pain Time Seen by Provider: 09/24/23 08:14 Source: patient, RN notes reviewed Mode of arrival: ambulatory Limitations: no limitations - History of Present Illness Initial Comments: 58-year-old female presents emergency department chief complaint of chest pain. Patient states started approximately 1 hour prior arrival. States that the right-sided chest pressure progress of her left to her left side. She states that she had some palpitation issues in the past related to caffeine intake. Patient denies any history of hypertension hyperlipidemia diabetes but states she has a family cardiac history. Patient states she is never had pain like this in the past. She does admit that she was admitted a few years ago for what they thought was a TIA. Patient denies any nausea vomiting diaphoresis. - Related Data Home Medications Medication Instructions Recorded Confirmed Fluticasone Nasal [place] [Flonase 1 spr EA NOSTRIL DAILY PRN 01/26/21 07/12/21 Nasal [place]] Loratadine [Claritin] 10 mg PO DAILY 01/26/21 07/12/21 Previous Rx's Medication Instructions Recorded Aspirin [[place] Aspirin EC] 81 mg PO DAILY #30 tablet. 01/27/21 Allergies Allergy/AdvReac Type Severity Reaction Status Date / Time Tetracyclines Allergy Nausea & Verified 09/24/23 08:10 Vomiting Review of Systems ROS Statement: Those systems with pertinent positive or pertinent negative responses have been documented in the HPI. ROS Other: All systems not noted in ROS Statement are negative. EKG Findings - EKG Comments: EKG Findings:: EKG performed at 8: 24 sinus bradycardia rate of 59 IN 141 QRS 91 QT/QTc 398/396 - EKG Results: EKG: interpreted by YOUNG Past Medical History Past Medical History: No Reported History, GERD/Reflux Additional Past Medical History / Comment(s): Occasional palpitations, past partial bowel obstruction treated conservatively, raynauds, chronic sinusitis History of Any Multi-Drug Resistant Organisms: None Reported Past Surgical History: No Surgical Hx Reported Additional Past Surgical History / Comment(s): EGD, colonoscopy, R s alpingectomy. Past Anesthesia/Blood Transfusion Reactions: No Reported Reaction Past Psychological History: No Psychological Hx Reported Smoking Status: Never smoker Past Alcohol Use History: Rare Past Drug Use History: None Reported - Past Family History Mother Family Medical History: Cancer, CVA/TIA, Hyperlipidemia, Hypertension Additional Family Medical History / Comment(s): Lung cancer/smoker, cva, heart problems. Mother is . Father Family Medical History: Hypertension Additional Family Medical History / Comment(s): Dementia, TIA. Father is living. General Exam Limitations: no limitations General appearance: alert, in no apparent distress Head exam: Present: atraumatic, normocephalic, normal inspection Eye exam: Present: normal appearance, PERRL, EOMI. Absent: scleral icterus, conjunctival injection, periorbital swelling ENT exam: Present: normal exam, mucous membranes moist Neck exam: Present: normal inspection. Absent: tenderness, meningismus, lymphadenopathy Respiratory exam: Present: normal lung sounds bilaterally. Absent: respiratory distress, wheezes, rales, rhonchi, stridor Cardiovascular Exam: Present: regular rate, normal rhythm, normal heart sounds. Absent: systolic murmur, diastolic murmur, rubs, gallop, clicks GI/Abdominal exam: Present: soft, normal bowel sounds. Absent: distended, tenderness, guarding, rebound, rigid Course Vital Signs 09/24/23 09/24/23 09/24/23 08:08 09:24 10:30 Temperature 98.2 F Pulse Rate 70 53 L 55 L Respiratory 16 18 18 Rate Blood Pressure 146/77 136/70 132/77 O2 Sat by Pulse 100 Oximetry Chest Pain MDM - MDM Was pt. sent in by a medical professional or institution (, PA, [employer]ILINGS [employer]ER, urgent care, hospital, or correction...) When possible be specific @ -No Did you speak to anyone other than the patient for history (EMS, parent, family, police, friend...)? What history was obtained from this source @ -No Did you review nursing and triage notes (agree or disagree)? Why? @ -I reviewed and agree with nursing and triage notes Were old charts reviewed (outside hosp., previous admission, EMS record, old EKG, old radiological studies, urgent care reports/EKG's, correction records)? Report findings @ -No old charts were reviewed Differential Diagnosis (chest pain, altered mental status, abdominal pain women, abdominal pain men, vaginal bleeding, weakness, fever, dyspnea, syncope, he adache, dizziness, GI bleed, back pain, seizure, CVA, palpatations, mental health, musculoskeletal)? @ -Differential Chest Pain: Stable Angina, Unstable Angina, STEMI, NSTEMI Aortic Dissection, Pneumothorax, Musculoskeletal, Esophageal Spasm GERD, Cholecystitis, Pancreatitis, Zoster, this is not meant to be an all-inclusive list. EKG interpreted by me (3pts min.). @ -As above X-rays interpreted by me (1pt min.). @ -Chest x-ray shows no acute process CT interpreted by me (1pt min.). @ -None done U/S interpreted by me (1pt. min.). @ -None done What testing was considered but not performed or refused? (CT, X-rays, U/S, labs)? Why? @ -None What meds were considered but not given or refused? Why? @ -None Did you discuss the management of the patient with other professionals (professionals i.e. , PA, [employer], lab, RT, psych nurse, social work administrator, rope tow operator, teacher, electronic intelligence officer, family caseworker)? Give summary @ -No Was smoking cessation discussed for >3mins.? @ -No Was critical care preformed (if so, how long)? @ -No Were there social determinants of health that impacted care today? How? (Homelessness, low income, unemployed, alcoholism, drug addiction, transportation, low edu. Level, literacy, decrease access to med. care, [facility], rehab)? @ -No Was there de-escalation of care discussed even if they declined (Discuss DNR or withdrawal of care, Hospice)? DNR status @ -No What co-morbidities impacted this encounter? (DM, HTN, Smoking, COPD, CAD, Cancer, CVA, ARF, Chemo, Hep., AIDS, mental health diagnosis, sleep apnea, morbid obesity)? @ -Palpitations, Was patient admitted / discharged? Hospital course, mention meds given and route, prescriptions, significant lab abnormalities, going to OR and other pertinent info. @ -[Discharge patient had negative laboratory studies including negative Trope x 2. Patient was initially offered admission. Patient states she is asymptomatic feels comfortable with discharge return plans discussed. Undiagnosed new problem with uncertain prognosis? @ -No Drug Therapy requiring intensive monitoring for toxicity (Heparin, Nitro, Insulin, Cardizem)? @ -No Were any procedures done? @ -No Diagnosis/symptom? @ -Palpitations Acute, or Chronic, or Acute on Chronic? @ -[Acute Uncomplicated (without systemic symptoms) or Complicated (systemic symptoms)? @ -Uncomplicated Side effects of treatment? @ -[No Exacerbation, Progression, or Severe Exacerbation? @ -No Poses a threat to life or bodily function? How? (Chest pain, [place], VT, pneumonia, PE, COPD, DKA, ARF, appy, cholecystitis, CVA, Diverticulitis, Homicidal, Suicidal, threat to staff... and all critical care pts) @ -No Disposition Clinical Impression: Palpitations Disposition: HOME SELF-CARE Condition: Stable Instructions (If sedation given, give patient instructions): Chest Pain (ED) Additional Instructions: Please return to the Emergency Department if symptoms worsen or any other concerns. Is patient prescribed a controlled substance at d/c from ED?: No Referrals: Adrian Landrum MD [Primary Care Provider] - 1-2 days Betito Dimas MD [STAFF PHYSICIAN] - 1-2 days Time of Disposition: 11:30
[2023-09-24 08:49] LABS: Basophils % (A) 1 %; Eosinophils # (A) 0.1 k/uL (0-0.7); Eosinophils % (A) 3 %; HCT 41.5 % (34.0-46.0); HGB 13.6 gm/dL (11.4-16.0); Lymphocytes # (A) 1.4 k/uL (1.0-4.8); Lymphocytes % (A) 35 %; MCH 28.3 pg (25.0-35.0); MCHC 32.8 g/dL (31.0-37.0); MCV 86.3 fL (80.0-100.0); Mean Platelet Volume 8.8; Monocytes # (A) 0.3 k/uL (0-1.0); Monocytes % (A) 7 %; Neutrophils # (A) 2.1 k/uL (1.3-7.7); Neutrophils % (A) 51 %; Platelet Count 250 k/uL (150-450); RBC 4.81 m/uL (3.80-5.40); RDW 13.5 % (11.5-15.5); WBC 4.1 k/uL (3.8-10.6)
[2023-09-24 08:51] LABS: INR 0.9 (<1.2); Partial Thromboplastin Time 24.5 sec (22.0-30.0); Prothrombin Time 9.8 sec (10.0-12.5)
--- NOTE | 2023-09-24 08:59 | XR ---
EXAMINATION TYPE: XR chest 2V DATE OF EXAM: 09/24/2023 COMPARISON: 01/26/2021 HISTORY: Chest pain TECHNIQUE: Frontal and lateral views of the chest are obtained. FINDINGS: There is no focal air space opacity. No evidence for pneumothorax. No pleural effusion. The cardiac silhouette size is within normal limits. The osseous structures are grossly intact. IMPRESSION: 1. No acute cardiopulmonary process.
[2023-09-24 09:00] LABS: ALT 21 U/L (4-34); AST 27 U/L (14-36); African American GFR (CKD) >90 (>60 ml/min/1.73 sqM); Albumin 4.4 g/dL (3.5-5.0); Alkaline Phosphatase 76 U/L (38-126); Anion Gap 7 mmol/L; Blood Urea Nitrogen 20 mg/dL (7-17); Calcium 9.8 mg/dL (8.4-10.2); Carbon Dioxide 24 mmol/L (22-30); Chloride 108 mmol/L (98-107); Glucose 95 mg/dL (74-99); Non-African American GFR(CKD) 79 (>60 ml/min/1.73 sqM); Potassium 4.3 mmol/L (3.5-5.1); Sodium 139 mmol/L (137-145); Total Bilirubin 0.4 mg/dL (0.2-1.3); Total Protein 6.8 g/dL (6.3-8.2)
[2023-09-24 09:41] VITALS: RESP 18
[2023-09-24 10:37] VITALS: BP 132/77; PULSE 55
== END 2023-09-24 11:49 | disposition home or self-care (01) ==
LOC: EC 08:05
DX: R00.2 Palpitations (principal); Z88.8 Allergy status to other drugs, medicaments and biological substances
CPT/HCPCS: 36415; 71046; 80053; 83735; 84484; 85025; 85379; 85610; 85730; 93005; 99285

== ENCOUNTER → 2024-03-11 | Outpatient (CLI) | payer BC ==
--- NOTE | 2024-03-17 08:28 | MM ---
Reason for Exam: Screening (asymptomatic). Last mammogram was performed 1 year(s) and 1 month(s) ago. Patient History: Menarche at age 11. First Full-Term at age 35. Late child-bearing (after 31). Postmenopausal. Patient has history of breast feeding. Currently using Estrogen, starting at age 52. Currently using Progesterone, starting at age 52. Hormonal Contraceptives for 3 years, 3 months. Paternal aunt had breast cancer. Risk Values: Meghan 5 year model risk: 1.9%. NCI Lifetime model risk: 11.7%. Prior Study Comparison: 09/20/2015 Bilateral Screening Mammogram, [facility]. 06/25/2017 Bilateral Screening Mammogram, [facility]. 07/06/2017 Right Diagnostic Mammogram, [facility]. 09/05/2018 Bilateral Screening Mammogram, [facility]. 09/08/2019 Bilateral Screening Mammogram, [facility]. 10/04/2021 Bilateral Screening Mammogram, [facility]. 02/08/2023 Bilateral MG 3D screening mammo w/cad, [facility]. Tissue Density: The breasts are heterogeneously dense, which may obscure small masses. Findings: Analyzed By CAD. There is no suspicious group of microcalcifications or new suspicious mass in either breast. Overall Assessment: Negative, BI-RAD 1 Management: Screening Mammogram of both breasts in 1 year. . Patient should continue monthly self-breast exams. A clinical breast exam by your physician is recommended on an annual basis. This exam should not preclude additional follow-up of suspicious palpable abnormalities. Note on Meghan scores and lifetime risk: 1. A Meghan score greater than 3% is considered moderate risk. If this is the case, consider specialist referral to assess eligibility for a risk reducing agent. 2. If overall lifetime risk for the development of breast cancer is 20% or higher, the patient may qualify for future screening with alternating mammogram and breast MRI. Electronically signed and approved by: Rodrigue Saez M.D. Radiologis
== END | disposition home or self-care (01) ==
LOC: RADMAMWWP 07:04
PROVIDERS: ATTEND Family Medicine
DX: Z12.31 Encounter for screening mammogram for malignant neoplasm of breast (principal); R92.333 Mammographic heterogeneous density, bilateral breasts; Z78.0 Asymptomatic menopausal state; Z80.3 Family history of malignant neoplasm of breast
CPT/HCPCS: 77063; 77067

== ENCOUNTER 2024-07-11 08:09 | Day surgery (SDC) | payer BC ==
[2024-07-09 11:02] VITALS: BMI 24.6
[2024-07-11] MEDS: IV FLUID CONTINUATION 1,000 ML IV ONE (08:25)
[2024-07-11] MEDS: LACTATED RINGERS 1,000 ML IV SCH (08:35)
[2024-07-11] MEDS ORDERED: PROPOFOL 10 MG/ML 20 ML VIAL IV ONE (09:05)
[2024-07-11] MEDS ORDERED: LIDOCAINE 1% INJ 10MG/ML (20 ML MDV) ONE (09:05)
--- NOTE | 2024-07-11 09:33 | P.PCN ---
Date of Procedure: 07/11/24 Procedure(s) Performed: BRIEF HISTORY: Patient is a 60-year-old pleasant white female scheduled for an elective colonoscopy as a part of screening for colon cancer PROCEDURE PERFORMED: Colonoscopy. PREOPERATIVE DIAGNOSIS: Screening for colon cancer. IV sedation per Anesthesia. PROCEDURE: After informed consent was obtained, the patient, was brought into the endoscopy unit. IV sedation was administered by Anesthesia under continuous monitoring. Digital rectal examination was normal. Initially the Olympus CF-160 flexible video colonoscope was then inserted in the rectum, gradually advanced into the cecum without any difficulty. Careful examination was performed as the scope was gradually being withdrawn. Ileocecal valve and the appendiceal orifice were visualized and appeared normal. Prep was excellent. Mucosa of the cecum, ascending colon, transverse colon, descending colon, sigmoid colon, and rectum appeared normal. Retroflexion was performed in the rectum and no lesions were seen. The patient tolerated the procedure well. IMPRESSION: Normal-appearing colon from rectum to cecum with no evidence of colorectal neoplasia. RECOMMENDATIONS: Findings of this examination were discussed with the patient as well as her family. She was advised to have repeat screening colonoscopy in 10 years..
[2024-07-11 09:55] VITALS: BP 127/83; PULSE 67; RESP 20
== END 2024-07-11 10:15 | disposition home or self-care (01) ==
LOC: ORWHC2ENDO 08:09
PROVIDERS: ATTEND Internal Medicine Gastroenterology
DX: Z12.11 Encounter for screening for malignant neoplasm of colon (principal); I73.00 Raynaud's syndrome without gangrene; K21.9 Gastro-esophageal reflux disease without esophagitis; Z86.73 Personal history of transient ischemic attack (TIA), and cerebral infarction without residual deficits; Z79.899 Other long term (current) drug therapy; Z98.890 Other specified postprocedural states
CPT/HCPCS: 45378; J2003; J2704